=== PATIENT | female | born 1995 | race Caucasian/White ===

== ENCOUNTER 2017-04-22 03:18 | Emergency (ER) | payer OTHER ==
[2017-04-22] MEDS ORDERED: AMOXICILLIN TRIHYDRATE 500 MG CAPSULE PO ONE (05:09)
--- NOTE | 2017-04-22 05:12 | ER Document Report ---
ED General - General Chief Complaint: Ear Pain Stated Complaint: RIGHT EAR PAIN Time Seen by Provider: 04/22/17 04:53 Notes: Patient is a 21-year-old female presents with complaint of ear pain. Pain is most in the right ear. She says she has had some runny nose cough and congestion for last 3 days. Tonight she woke up with sudden sharp ear pain that has been unrelenting since she woke up. No vomiting. No abdominal pain. No chest pain. She is a smoker. She does not take any medications and is otherwise healthy. No other complaints at this time. - Related Data Allergies/Adverse Reactions: sulfamethoxazole [From Bactrim DS] Allergy (Verified 04/22/17 03:19) trimethoprim [From Bactrim DS] Allergy (Verified 04/22/17 03:19) Past Medical History - Social History Smoking Status: Current Every Day Smoker Chew tobacco use (# tins/day): No Frequency of alcohol use: Occasional Drug Abuse: None Family History: Reviewed & Not Pertinent Patient has suicidal ideation: No Patient has homicidal ideation: No Renal/ Medical History: Denies: Hx Peritoneal Dialysis GI Medical History: Reports: Hx Gastroesophageal Reflux Disease Review of Systems - Review of Systems Notes: My Normal Review Basic REVIEW OF SYSTEMS: CONSTITUTIONAL : Denies fever, chills, or sweats. Denies recent illness. EENT: Congestion. Right ear pain. CARDIOVASCULAR: Denies chest pain. RESPIRATORY: Some cough. GASTROINTESTINAL: Denies abdominal pain. Denies nausea, vomiting, or diarrhea. MUSCULOSKELETAL: Denies neck or back pain or joint pain or swelling. SKIN: Denies rash or skin lesions. NEUROLOGICAL: Denies altered mental status or loss of consciousness. Denies headache. Denies weakness or paralysis or loss of use of either side. Denies problems with gait or speech. Denies sensory or motor loss. ALL OTHER SYSTEMS REVIEWED AND NEGATIVE. Physical Exam - Vital signs Vitals: Temp Pulse Resp BP Pulse Ox 98.9 F 84 16 126/84 H 99 04/22/17 03:43 04/22/17 03:43 04/22/17 03:43 04/22/17 03:43 04/22/17 03:43 - Notes Notes: General Appearance: Well nourished, alert, cooperative, no acute distress, mild to moderate obvious discomfort. Vitals: reviewed, See vital signs table. Head: no swelling or tenderness to the head Eyes: PERRL, EOMI, Conjuctiva clear Mouth: No decreasd moisture Throat: No tonsillar inflammation, No airway obstruction, No lymphadenopathy Ears: Right TM is erythematous red and bulging. Ear canal itself is normal- appearing. Left TM is normal-appearing. Neck: Supple, no neck tenderness, No neck swelling Lungs: No wheezing, No rales, No rhonci, No accessory muscle use, good air exchange bilaterally. Heart: Normal rate, Regular rythm, No murmur, no rub Skin: warm, dry, appropriate color, no rash Neuro: speech clear, oriented x 3, normal affect, responds appropriately to questions. Course - Re-evaluation Re-evalutation: 04/22/17 06:22 Patient will be placed on antibiotics for otits media also gave her a 3 mL syringe of 0.5% bupivacaine. I informed her she can drop 2 drops in her ear every 8 hours to help control the pain. Encouraged her return to ER immediately if she has fevers, worsening pain in the ear, difficulty breathing, productive cough, or she feels unwell. I encouraged her follow-up with in 3 -4 days for reevaluation. Patient agrees with plan will be discharged home. Dictation of this chart was performed using voice recognition software; therefore, there may be some unintended grammatical errors. 04/22/17 06:22 - Vital Signs Vital signs: Temp Pulse Resp BP Pulse Ox 98.6 F 80 14 112/70 100 04/22/17 05:42 04/22/17 05:42 04/22/17 05:42 04/22/17 05:42 04/22/17 05:42 Discharge - Discharge Clinical Impression: URI (upper respiratory infection) Qualifiers: URI type: unspecified URI Qualified Code(s): J06.9 - Acute upper respiratory infection, unspecified Otitis media Qualifiers: Otitis media type: unspecified Chronicity: acute Qualified Code(s): H66.90 - Otitis media, unspecified, unspecified ear Condition: Good Disposition: HOME, SELF-CARE Additional Instructions: Please take the antibiotics as prescribed for your ear. Please take an over the counter probiotic to help prevent diarrhea. Please stop taking the antibiotic if you develop diarrhea. Please follow up with a doctor in 3-4 days for reevaluation to make sure you are improving. You can apply 2 drops of the bupivicaine solution to your ear ever 8 hours. Prescriptions: Amoxicillin Trihydrate [Amoxil 500 mg Capsule] 1,000 mg PO BID #28 capsule Forms: Return to Work
[2017-04-22 05:43] VITALS: BP 112/70
== END 2017-04-22 05:42 | disposition home or self-care (01) ==
LOC: ER 03:18
DX: J06.9 Acute upper respiratory infection, unspecified (principal); H66.90 Otitis media, unspecified, unspecified ear; F17.200 Nicotine dependence, unspecified, uncomplicated; Z88.3 Allergy status to other anti-infective agents
CPT/HCPCS: 99282